=== PATIENT | male | born 1990 | race African-American/Black ===

== ENCOUNTER 2019-10-01 15:20 | Emergency (ER) | payer OTHER ==
[~2019-10-01] VITALS: Ht 185.4 cm; Wt 113.4 kg
== END 2019-10-01 19:38 | disposition home or self-care (01) ==
LOC: ER 15:20
DX: J06.9 Acute upper respiratory infection, unspecified (principal)

== ENCOUNTER 2019-10-18 09:20 | Emergency (ER) | payer OTHER ==
[~2019-10-18] VITALS: Ht 185.4 cm; Wt 120.2 kg
[2019-10-18] MEDS ORDERED: PROTONIX40 MG PO (13:48)
== END 2019-10-18 14:10 | disposition home or self-care (01) ==
LOC: ER 09:20
DX: R19.7 Diarrhea, unspecified (principal)

== ENCOUNTER 2021-12-16 13:10 | Emergency (ER) | payer OTHER ==
[~2021-12-16] VITALS: Ht 185.4 cm; Wt 122.5 kg
[~2021-12-16 13:10] MED LIST: PROTONIX40 MG PO
== END 2021-12-16 16:36 | disposition home or self-care (01) ==
LOC: ER 13:10
DX: R10.13 Epigastric pain (principal)

== ENCOUNTER 2022-05-07 03:11 | Emergency (ER) | payer OTHER ==
[~2022-05-07] VITALS: Ht 185.4 cm; Wt 113.4 kg
[2022-05-07] MEDS ORDERED: AZITHROMYCIN500 MG PO (05:18)
[2022-05-07] MEDS ORDERED: MUCINEX DM ER1 EACH PO (05:18)
[2022-05-07] MEDS ORDERED: MEDROLPACK PO (05:18)
[2022-05-07] MEDS ORDERED: XOPENEX0.63 MG/3 IH (05:18)
== END 2022-05-07 06:15 | disposition home or self-care (01) ==
LOC: ER 03:11
DX: J06.9 Acute upper respiratory infection, unspecified (principal); Z20.822 Contact with and (suspected) exposure to COVID-19

== ENCOUNTER 2022-06-28 10:55 | Emergency (ER) | payer OTHER ==
[~2022-06-28] VITALS: Ht 185.4 cm; Wt 104.3 kg
[~2022-06-28 10:55] MED LIST changes: +AZITHROMYCIN500 MG PO; +MEDROLPACK PO; +MUCINEX DM ER1 EACH PO; +XOPENEX0.63 MG/3 IH
[2022-06-28] MEDS ORDERED: OSEL75CA PO (15:14)
[2022-06-28] MEDS ORDERED: DICLOFENAC POTA50 MG PO (15:14)
== END 2022-06-28 15:55 ==
LOC: ER 10:55
DX: J10.1 Influenza due to other identified influenza virus with other respiratory manifestations (principal); B34.9 Viral infection, unspecified; Z20.822 Contact with and (suspected) exposure to COVID-19

== ENCOUNTER → 2024-12-02 | Emergency (ER) | payer OTHER ==
[~2024-12-02] VITALS: Ht 185.4 cm; Wt 83.9 kg
[~2024-12-02] MED LIST changes: +ALBUTEROL SULFATE 3 ML/2.5 MG AMPUL.NEB IH ONE; +DICLOFENAC POTA50 MG PO; +DICLOFENAC SODI75 MG PO; +KETOROLAC TROMETHAMINE 60 MG VIAL IM ONE; +ORPHENADRINE CITRATE 30 MG/ML AMPUL IM ONE; +ORPHENADRINE CITRATE 30 MG/ML AMPUL ONE; +OSEL75CA PO
== END | disposition home or self-care (01) ==
LOC: ER 19:30
DX: M54.9 Dorsalgia, unspecified (principal); M54.50 Low back pain, unspecified